=== PATIENT | male | born 1990 | race Two or more races ===

== ENCOUNTER 2019-01-26 12:10 | Emergency (ER) | payer SELFPAY ==
[~2019-01-26] VITALS: Ht 170.2 cm; Wt 70.0 kg
[2019-01-26 12:13] VITALS: BP 128/78
== END 2019-01-26 12:30 | disposition left against medical advice (07) ==
LOC: ER 12:10
DX: F10.129 Alcohol abuse with intoxication, unspecified (principal); Y90.9 Presence of alcohol in blood, level not specified
CPT/HCPCS: 99283